=== PATIENT | female | born 1970 | race Two or more races ===

== ENCOUNTER 2024-10-05 11:18 | Outpatient (RCR) | payer MEDICAID, SELFPAY ==
--- NOTE | 2024-10-05 11:39 | PTNOTE_ITS ---
PT OP Initial Eval Patient Information Outpatient Physical Therapy Treatment Date: 10/05/24 Visit Reasons: Carpal tunnel left/Right wrist Medical Diagnosis: M65.311 R20.2 G56.02 G56.01 Treatment Dx #1: B hand pain Treatment Dx #2: B wrist pain Start of Care: 10/05/24 Date of Onset: 2 yrs ago Smoking Status Smoking Status: Never smoker Initial Assessment Subjective: Pt is 54 yr old upper sorbian speaking female who reports onset of tingling of R thumb and digits 2-3, 2 yrs ago. Since then the pain in the wrist and hand has been variable. She had injections in the thumb in 2022 which helped and she can do ADL's with low pain. 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 She likes to do jeffery sometimes and wonders if that has anything to do with ssx. 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 She may benefit from skilled therapy to decrease pain and has fair rehab potential to meet goals. Short Term and Medical Clinic Manager Goals 1. Ind with HEP 2. Improved origination specialist strength to 65 lbs B 3. Decreased numbness in B wrists and hands by 50% with work duties Treatment Plan ? 1. Manual therapy ? 2. Therex ? 3. Modalities as indicated, moist heat, ice, estim Frequency and Duration: 1-2x a week x6 weeks Certification Dates: 10/05/24 to 01/02/25 Procedure Charges OP PT Eval Mod Complex 30 minutes: Yes
== END 2024-10-22 23:59 | disposition home or self-care (01) ==
LOC: CPTX 11:18
DX: M79.642 Pain in left hand (principal); M79.641 Pain in right hand; M25.532 Pain in left wrist; M25.531 Pain in right wrist; M65.311 Trigger thumb, right thumb; R20.2 Paresthesia of skin; G56.03 Carpal tunnel syndrome, bilateral upper limbs
CPT/HCPCS: 97162

== ENCOUNTER 2024-11-17 10:00 | Outpatient (RCR) | payer MEDICAID, SELFPAY ==
--- NOTE | 2024-10-26 10:44 | PT.ODAYNRPT ---
PT Outpatient Daily Note OP Daily Note Outpatient Physical Therapy Treatment Date: 10/26/24 Visit Reasons: Carpal Tunnel Subjective: No new complaints or concerns. Objective: Please see flow sheet for ther ex list. Assessment: Pt tolerated interventions with minimal pain. Plan: Continue with POC. Length of Time (minutes) of Treatment: 30 Minutes Procedure Charges Therapeutic Exercise 30 minutes: Yes
--- NOTE | 2024-11-02 10:39 | PT.ODAYNRPT ---
PT Outpatient Daily Note OP Daily Note Outpatient Physical Therapy Treatment Date: 11/02/24 Visit Reasons: Carpal Tunnel Subjective: No new concerns or complaints today. Objective: Please see flow sheet for ther ex list. Assessment: Added interventions for gripping and wrist functional movement completed with no complaints. Plan: Continue with POC. assess response to treatment. Length of Time (minutes) of Treatment: 30 Minutes Procedure Charges Therapeutic Exercise 30 minutes: Yes
--- NOTE | 2024-11-09 10:10 | PT.ODAYNRPT ---
PT Outpatient Daily Note OP Daily Note Outpatient Physical Therapy Treatment Date: 11/09/24 Visit Reasons: Carpal Tunnel Subjective: Doing ok with low pain in B wrists Objective: See F/S for therex Assessment: Low tissue irritability with gripping therex Plan: Continue per POC Procedure Charges Therapeutic Exercise 30 minutes: Yes
--- NOTE | 2024-11-17 10:39 | PT.ODAYNRPT ---
PT Outpatient Daily Note OP Daily Note Outpatient Physical Therapy Treatment Date: 11/17/24 Visit Reasons: Carpal Tunnel Subjective: Pt reports hands are doing ok, no new complaints. Objective: Please see flow sheet for ther ex list. Assessment: Progressing strengthening interventions as tolerated. Plan: Continue with pOC. Length of Time (minutes) of Treatment: 30 Minutes Procedure Charges Therapeutic Exercise 30 minutes: Yes
== END 2024-11-22 23:59 | disposition home or self-care (01) ==
LOC: CPTX 10:00
DX: M79.642 Pain in left hand (principal); M79.641 Pain in right hand; M25.532 Pain in left wrist; M25.531 Pain in right wrist; M65.311 Trigger thumb, right thumb; R20.2 Paresthesia of skin
CPT/HCPCS: 97110

== ENCOUNTER 2024-12-22 10:30 | Outpatient (RCR) | payer MEDICAID, SELFPAY ==
--- NOTE | 2024-11-24 12:43 | PTNOTE_ITS ---
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
--- NOTE | 2024-12-02 13:03 | PT.ODAYNRPT ---
PT Outpatient Daily Note OP Daily Note Outpatient Physical Therapy Treatment Date: 12/02/24 Visit Reasons: Carpal tunnel Subjective: Pt reports pain on both hands, no progress at this time. Objective: Please see flow sheet for ther ex list. Assessment: Poor progress with B hand symptoms delaying progression of interventions in clinic. Plan: Continue with POC. Length of Time (minutes) of Treatment: 30 Minutes Procedure Charges Therapeutic Exercise 30 minutes: Yes
--- NOTE | 2024-12-08 11:38 | PT.ODAYNRPT ---
PT Outpatient Daily Note OP Daily Note Outpatient Physical Therapy Treatment Date: 12/08/24 Visit Reasons: Carpal tunnel Subjective: Pt reports no changes. Objective: Please see flow sheet for ther ex list. Assessment: Pt demonstrates poor progress with symptoms delaying intervention progression in clinic. Plan: Continue with poC. Length of Time (minutes) of Treatment: 30 Minutes Procedure Charges Therapeutic Exercise 30 minutes: Yes
--- NOTE | 2024-12-15 13:05 | PT.ODAYNRPT ---
PT Outpatient Daily Note OP Daily Note Outpatient Physical Therapy Treatment Date: 12/15/24 Visit Reasons: Carpal tunnel Subjective: Pt reports hand progress has been slow, still has pain in B hands. Notices her R thumb has been bothering her more lately. Objective: Please see flow sheet for ther ex list. Assessment: Pt demonstrates poor activity tolerance delaying progression in clinic. Plan: Continue with poC. Length of Time (minutes) of Treatment: 30 Minutes Procedure Charges Therapeutic Exercise 30 minutes: Yes
--- NOTE | 2024-12-20 18:39 | PT.ODAYNRPT ---
PT Outpatient Daily Note OP Daily Note Outpatient Physical Therapy Treatment Date: 12/20/24 Visit Reasons: Carpal tunnel Subjective: Doing ok with low pain in B wrists but the thumb hurts sometimes. 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
--- NOTE | 2024-12-22 11:06 | PT.ODAYNRPT ---
PT Outpatient Daily Note OP Daily Note Outpatient Physical Therapy Treatment Date: 12/22/24 Visit Reasons: Carpal tunnel Subjective: Doing ok with low pain in B wrists but the thumb hurts sometimes. 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 Initial 30 minutes: Yes
== END 2024-12-22 23:59 | disposition home or self-care (01) ==
LOC: CPTX 10:30
DX: M79.642 Pain in left hand (principal); M79.641 Pain in right hand; M25.532 Pain in left wrist; M25.531 Pain in right wrist; M65.311 Trigger thumb, right thumb; R20.2 Paresthesia of skin
CPT/HCPCS: 97110

== ENCOUNTER 2024-12-28 11:11 | Outpatient (RCR) | payer MEDICAID, SELFPAY ==
--- NOTE | 2024-12-28 11:40 | PTNOTE_ITS ---
PT OP Progress/Discharge Note Date of Service: 12/27/24 Progress Note/DC Note Progress Note/Discharge Note: DC Note Patient Information Visit Reasons: Carpal tunnel Service Continue Service or Discharge: Discharge Status Subjective: Pt reports less B hand numbness since starting therapy and improved ROM into extension of B thumbs. 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 She has 50% less numbness in wrists and hands to meet that goal. Dry End Tester strength of L hand has improved 5 lbs to 60 lbs but is shy of the goal of 65 lbs B. Pt is independent with HEP to meet that goal and should continue to progress. Plan: POC expires this week and she will D/C to continue at home with HEP. Procedure Charges [facility] Initial 30 minutes: Yes
== END 2025-01-22 23:59 | disposition home or self-care (01) ==
LOC: CPTX 11:11
DX: M79.642 Pain in left hand (principal); M79.641 Pain in right hand; M25.532 Pain in left wrist; M25.531 Pain in right wrist; M65.311 Trigger thumb, right thumb; R20.2 Paresthesia of skin

== ENCOUNTER → 2025-05-05 | Outpatient (CLI) | payer MEDICAID, SELFPAY ==
--- NOTE | 2025-05-05 09:15 | XR_ITS ---
Examination: Screening digital mammography, bilateral Computer aided detection 3-D breast Tomosynthesis, bilateral Date and time of exam: May 05, 2025, 0923 hours Compared to mammograms dating to January 27, 2021 Indication: Screening Technique: Nonmagnified MLO, CC views of the breasts to been obtained, reconstructed from 3-D Tomosynthesis images. R2 computer aided detection program utilized for evaluation of suspicious masses and/or abnormal calcifications. 3-D Tomosynthesis images obtained. Findings: The breasts are heterogeneously dense, which may obscure small masses Stable focal asymmetry upper outer left breast dating to mammograms January 27, 2021 No interval suspicious masses Impression: BI-RADS category II: Benign Findings. Recommend 1 year follow-up mammogram.
== END | disposition home or self-care (01) ==
LOC: CDIM 09:13
PROVIDERS: Referring Provider Registered Nurse; Visit Provider Registered Nurse
DX: Z12.31 Encounter for screening mammogram for malignant neoplasm of breast (principal); R92.323 Mammographic fibroglandular density, bilateral breasts
CPT/HCPCS: 77063; 77067